=== PATIENT | female | born 1965 | race Caucasian/White ===

== ENCOUNTER 2018-02-02 06:20 | Day surgery (SDC) | payer OTHER ==
[2018-01-29 19:58] VITALS: BMI 26.6
[~2018-02-02 06:20] MED LIST: FERRIC SUBSULFATE 500 ML BOTTLE TP ONE; IODINE/POTASSIUM IODIDE 5%/10% 14 ML BOTTLE NR ONE
--- NOTE | 2018-02-02 07:17 | HP ---
[facility] - Chief Complaint Chief Complaint: This patient is admiited for a LEEP CONIZATION for cervical dysplasia CIN2. History of Present Illness: The patient recently had an abnormal pap test followed by colposcopy showing CIN2. Patient is now here to treat this problem. 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: Alzheimer's, CVA, Dementia, Migraine, Multiple Sclerosis, Peripheral Neuropathy, Parkinson's, Seizure, Syncope, TIA, Vertigo, Other Cardiovascular: No: AFIB, Aneurysm, Aortic Insufficiency, Aortic Stenosis, CAD, CHF, Deep Vein Thrombosis, HTN, Hyperlipdemia, OK, Mitral Insufficiency, Mitral Stenosis, Murmur, Pulmonary Hypertension, Other Pulmonary: No: Asthma, Bronchitis, Cancer, COPD, O2 Dependent, Pneumonia, Previously Intubated, Pulmonary Embolus, Pulmonary Fibrosis, Sleep Apnea, Other Gastrointestinal: No: Ascites, Cancer, Constipation, Crohn's Disease, Diverticulitis, Diverticulosis, Esophageal Varices, Gastritis, GERD, GI Bleed, Hemorrhoids, Hiatal Hernia, Inflamatory Bowel Disease, Irritable Bowel Disease, Pancreatitis, Peptic Ulcer Disease, Ulcerative Colitis, Other Hepatobiliary: No: Cirrhosis, Cholelithiasis, Cholecystitis, Choledocholithiasis , Hepatitis A, Hepatitis B, Hepatitis C, Other Renal/: No: Renal Failure, Renal Inusuff, BPH, Cancer, Hematuria, Hemodialysis , Neurogenic Bladder, Renal Calculi, UTI, Other Reproductive: No: Ectopic , Endometriosis, Fibroids, PID, Polycystic Ovary Syndrome, Postmenopausal, Other ...LMP: 01/29/18 ...: No ...: 2 ...Para: 1 Heme/Onc: No: Anemia, B12 Deficiency, Bleeding Disorder, Cancer, Current Chemotherapy, Current Radiation Therapy, Hemochromatosis, Hypercoaguable State, Myeloproliferative Synd, Sickle Cell Disease, Sickle Cell Trait, Thrombocytopenia, Other Infectious Disease: No: AIDS, C-Diff, Herpes Zoster, HIV, MRSA, STD's, Tuberculosis, VREF, Other Musculoskeletal: No: Bursitis, Chronic low back pain, Hemiparesis, Hemiplegia, Osteoarthritis, Paraplegia, Other Rheumatology: No: Fibromyalgia, Gout, Lupus, Rheumatoid Arthritis, Sarcoidosis, Vasculitis, Other ENT: No: Allergic Rhinitis, Sinusitis, Other Endocrine: No: Jerauld's Disease, Exton's Disease, Diabetes Insipidus, Diabetes Mellitus, Hyperparathyroidism, Hyperthyroidism, Hypothyroidism, Osteopenia, SIADH, Other Dermatology: No: Basal Cell, Cellulitis, Eczema, Melanoma, Psoriasis, Squamous Cell, Other - Current Medications Current Medications: Home Medications Medication Instructions Recorded Lisdexamfetamine Dimesylate 40 mg PO DAILY 01/29/18 [Vyvanse] Sertraline HCl 100 mg PO DAILY 01/29/18 Satellite Physical Exam - Physical Examination Vital Signs: Vital Signs Period Temp Pulse Resp BP Sys/Chaney Pulse Ox Last 24 Hr 98.5 F 69 20 114/78 96 General Appearance: Well Nourished, Well Developed, Alert & Oriented x3 ENT: Clear, No Discharge, No masses Lung: Clear to auscultation Heart: Regular rate & rhythm, Normal S1, Normal S2 Breasts: Soft, Non-Tender, No masses bilaterally Abdomen: Soft, No tenderness, No CVA Extremities: No edema, No tenderness/swelling Pelvic Exam: Within normal limits External Genitalia, Within normal limits Vagina, Within normal limits Cervix, Within normal limits Uterus, Within normal limits [facility] Neu[facility]: Intact, Alert, Oriented Satellite Impression/Plan - Impression/Plan Impression: Cervical dysplasia ROLANDO 2 Operative Procedure: LEEP CONIZATION Date to be Performed: 02/02/18
[2018-02-02] MEDS ORDERED: PROPOFOL 20 ML ONE (07:41)
[2018-02-02] MEDS ORDERED: MIDAZOLAM HCL 2 MG/2 ML SINGLE DOSE VIAL ONE (07:41)
[2018-02-02] MEDS ORDERED: LIDOCAINE HCL/PF 2% SDV 5ML VIAL ONE (07:41)
[2018-02-02] MEDS ORDERED: KETOROLAC TROMETHAMINE 30 MG/1 ML VIAL ONE (08:02)
[2018-02-02] MEDS ORDERED: oxyCODONE HCL 5 MG TABLET PO PRN (08:36)
[2018-02-02] MEDS ORDERED: ONDANSETRON 4 MG/2 ML VIAL IVPUSH PRN (08:36)
[2018-02-02] MEDS ORDERED: ACETAMINOPHEN 500 MG TABLET (FP) PO PRN (08:36)
[2018-02-02] MEDS ORDERED: LACTATED RINGERS SOLUTION 1,000 ML IV SCH (08:45)
--- NOTE | 2018-02-02 11:53 | OP ---
DATE OF OPERATION: DATE OF DICTATION: 02/02/2018 PREOPERATIVE DIAGNOSIS: Moderate cervical dysplasia. POSTOPERATIVE DIAGNOSIS: Moderate cervical dysplasia. OPERATIVE PROCEDURE: Loop electrosurgical excision procedure conization of cervix, colposcopy, and endocervical curettage. DESCRIPTION OF PROCEDURE: The patient was brought to the operating room, placed in the supine position, given fractional anesthesia by Dr. Gill, placed in the lithotomy position, prepped and draped in the usual manner for LEEP cone biopsy. A colposcopy was first performed, and the colposcopy was negative. It did not show any abnormalities. The transformation zone was not visible. This was followed by an endocervical curettage by dilating the cervix slightly with a Odom dilator and obtaining endocervical curettings using a small curette. This was followed by a LEEP conization using a 1 x 2 loop with a 50-50 blend 1 wattage. Hemostasis was good, and hemostasis was achieved using a 5 mm ball electrode at 50 whittaker coagulation. Hemostasis was very good. The estimated blood loss was about 5 mL. The patient went to the recovery room in good condition. Isaiah [id number]
[2018-02-02 14:45] VITALS: BP 129/79
[2018-02-02 14:55] VITALS: PULSE 57; TEMP 97.8
--- NOTE | 2018-02-11 15:53 | PATH ---
Surgical Pathology Report Patient Name: KIMBER SCHULTZ [facility]. Rec. #: [id number] /Age/Gender: 1965 (Age: 53) / F Account: [id number] Location: [facility] SURGICAL Taken: 02/02/2018 Received: 02/02/2018 Reported: 02/11/2018 Physicians: Joe Currie M.D. Specimen(s) Received A: ENDOCERVICAL CURETTINGS B: CERVICAL BIOPSY Clinical History Moderate cervical dysplasia Final Diagnosis A. ENDOCERVICAL CURETTINGS, DILATION AND CURETTAGE: FRAGMENTS OF CERVICAL SQUAMOUS MUCOSA WITH LOW GRADE SQUAMOUS INTRAEPITHELIAL LESION (LSIL), BENIGN ENDOCERVICAL TISSUE, AND LOWER UTERINE SEGMENT. B. CERVIX, LOOP ELECTROSURGICAL EXCISION PROCEDURE (LEEP): CERVICAL SQUAMOUS AND ENDOCERVICAL MUCOSA WITH FOCAL LOW GRADE SQUAMOUS INTRAEPITHELIAL LESION (CERVICAL INTRAEPITHELIAL NEOPLASIA 1/ROLANDO-1), FOCALLY EXTENDING TO INKED (ECTOCERVIX) SURGICAL MARGIN. NO HIGH GRADE DYSPLASIA IDENTIFIED. TRANSFORMATION ZONE: PRESENT. CHRONIC CERVICITIS. Comment: Immunohistochemical stains performed at [place], [place] ([id number]) and interpreted at [facility] show p16 (parts A & B) have focal weak staining. Proliferative marker ki-67 was utilized to evaluate this case. Findings discussed with Dr. Currie. Electronically Signed Kennedi Finley M.D. Gross Description A. Received in formalin labeled "endocervical curetting" are multiple fragments of pink-naik tissue measuring 2 x 1 x 0.3 cm in aggregate. Entire specimen submitted in one cassette. B. Received in formalin labeled "cervical large leep" is an irregular white and hemorrhagic soft tissue measuring 1.5 x 1.2 x 0.4 cm. The specimen is unoriented. The surgical margin is inked in blue. Rare small mucoid cysts ranging in size from 0.1-0.3 cm are identified. Specimen is entirely submitted in 2 cassettes. MLSZ/02/02/2018 [place]/02/02/2018
== END 2018-02-02 12:15 | disposition home or self-care (01) ==
LOC: JASU-SURG 06:20
PROVIDERS: ATTEND Obstetrics & Gynecology
PROC: 0UBC7ZX Excision of Cervix, Via Natural or Artificial Opening, Diagnostic (ICD-10-PCS; principal; 2018-02-02 07:30)
DX: N87.1 Moderate cervical dysplasia (principal)
CPT/HCPCS: 36415; 84703; 86850; 86900; 86901; 88305-TC; 94760